=== PATIENT | male | born 1935 | race American Indian/Alaskan Native ===

== ENCOUNTER 2017-07-18 00:38 | Emergency (ER) | payer MEDICARE ==
[2017-07-18 00:40] VITALS: BMI 25.8
[2017-07-18 00:48] VITALS: BP 179/85; PULSE 63; RESP 18; TEMP 98.1; O2SAT 97
--- NOTE | 2017-07-18 02:29 | ED PDOC ---
Arrival/HPI - General Historian: Patient - History of Present Illness Time/Duration: 1 hour Symptom Onset: Sudden Symptom Course: Unchanged, Intermittent Quality: Fullness Severity Level: 5 Activities at Onset: Rest Context: Home <ZEFERINO NOLAN - Last Filed: 07/18/17 03:58> <Alex Landon - Last Filed: 07/18/17 06:28> - General Chief Complaint: Male Genitourinary Time Seen by Provider: 07/18/17 01:49 - History of Present Illness Narrative History of Present Illness (Text): 07/18/17 02:19 81yo AAM PMH prostate CA (2008) s/p radiation, hypertension, hypercholesterolemia, and b/l hip surgery who presents with scrotal bleeding that started an hour prior to presentation to emergency department. per daughter , pt was washing up in the rest room and noticed blood going down his leg and was worried it was from the penis. examined him and notes that it was scrotal. pt also complains of suprapubic pain 5/10 non-radiating and describes it as fullness, stating that when he urinates, he doesn't fully void. pt states that he went to Urologist yesterday and was evaluated, but told there's no problems PMD: Carlos Uro: Anton 07/18/17 02:33 (ZEFERINO NOLAN) Past Medical History - Provider Review Nursing Documentation Reviewed: Yes - Past History Past History: Non-Contributing - Infectious Disease Hx of Infectious Diseases: None - Tetanus Immunization Tetanus Immunization: Unknown - Past Medical History Past Medical History: Non-Contributing - Cardiac Hx Cardiac Disorders: Yes Hx Hyperlipemia: Yes Hx Hypertension: Yes - Pulmonary Hx Respiratory Disorders: No - Neurological Hx Neurological Disorder: No - HEENT Hx HEENT Disorder: No - Renal Hx Renal Disorder: Yes Hx Kidney Stones: Yes (LASER TREATMENT) - Endocrine/Metabolic Hx Endocrine Disorders: No - Hematological/Oncological Hx Blood Disorders: Yes Hx Cancer: Yes (CANCER OF THE PROSTATE-s/p radiation and SEED IMPLANTS DONE) - Integumentary Hx Dermatological Disorder: No - Musculoskeletal/Rheumatological Hx Musculoskeletal Disorders: Yes Hx Arthritis: Yes (KNEES BILAT) Hx Back Pain: Yes Hx Degenerative Joint Disease: Yes (HIPS BILAT-WITH HIP REPLACEMENTS BILAT.) Hx Falls: Yes (X1) Hx Herniated Disk: Yes (LOWER BACK-WITH SURGERY) - Gastrointestinal Hx Gastrointestinal Disorders: Yes (GENERALIZED ABD. PAIN AND ON AND OFF DIARRHEA) - Genitourinary/Gynecological Hx Genitourinary Disorders: Yes Hx Prostate Cancer: Yes (2008-SEEDS IMPLANT [place].) - Psychiatric Hx Psychophysiologic Disorder: No Hx Substance Use: No - Surgical History Hx Joint Replacement: Yes (BILATERAL HIP REPLACEMENTS) Hx Orthopedic Surgery: Yes (LOWER BACK SURGERY) - Anesthesia Hx Anesthesia: Yes Hx Anesthesia Reactions: No Hx Malignant Hyperthermia: No - Suicidal Assessment Feels Threatened In Home Enviroment: No <ZEFERINO NOLAN - Last Filed: 07/18/17 03:58> Family/Social History - Physician Review Nursing Documentation Reviewed: Yes Family/Social History: No Known Family HX Smoking Status: Never Smoked Hx Alcohol Use: No Hx Substance Use: No Hx Substance Use Treatment: No <ZEFERINO NOLAN - Last Filed: 07/18/17 03:58> Allergies/Home Meds <ZEFERINO NOLAN - Last Filed: 07/18/17 03:58> <Alex Landon - Last Filed: 07/18/17 06:28> Allergies/Adverse Reactions: Allergies No Known Allergies Allergy (Verified 01/21/16 13:13) Home Medications: Home Meds Medication Instructions Recorded Confirmed Tamsulosin [Flomax] 0.4 mg PO DAILY 10/15/13 07/18/17 Atorvastatin Calcium [Lipitor] 40 mg PO HS 06/28/15 07/18/17 Amlodipine Besylate [Norvasc] 5 mg PO DAILY 03/13/16 07/18/17 Carvedilol [Coreg] 3.125 mg PO BID 03/13/16 07/18/17 Review of Systems - Physician Review All systems were reviewed & negative as marked: Yes - Review of Systems Constitutional: Normal. absent: Weight Change, Fevers Respiratory: Normal Cardiovascular: Normal Gastrointestinal: Abdominal Pain (suprapubic, 5/10), Diarrhea. absent: Nausea, Vomiting Genitourinary Male: Urinary Output Changes (a/w prostate enlargement). absent: Dysuria, Hematuria <ZEFERINO NOLAN - Last Filed: 07/18/17 03:58> Physical Exam Vital Signs Reviewed: Yes Appearance: Positive for: Well-Appearing Pain Distress: None Mental Status: Positive for: Alert and Oriented X 3 - Systems Exam Head: Present: Atraumatic Pupils: Present: PERRL Extroacular Muscles: Present: EOMI Conjunctiva: Present: Normal Neck: Present: Normal Range of Motion Respiratory/Chest: Present: Clear to Auscultation, Good Air Exchange Cardiovascular: Present: Regular Rate and Rhythm, Normal S1, S2 Abdomen: Present: Tenderness (suprapubic), Normal Bowel Sounds. No: Distention , Peritoneal Signs, Guarding Rectal: No: Gross Blood Genitourinary Male: Present: Normal External Genitalia, Lesions (superficial scrotal abrasion, no active bleeding). No: Penile Discharge, Testicle Tenderness, Erythema, Testicle Swelling Upper Extremity: Present: Normal Inspection Lower Extremity: Present: Normal Inspection. No: Edema Neurological: Present: Speech Normal Skin: Present: Warm, Dry, Abrasion (L scrotal abrasion, no active bleeding) Psychiatric: Present: Alert, Oriented x 3 <ZEFERINO NOLAN - Last Filed: 07/18/17 03:58> Temperature: Afebrile Blood Pressure: Hypertensive Pulse: Regular Respiratory Rate: Normal <Alex Landon - Last Filed: 07/18/17 06:28> Vital Signs Temp Pulse Resp BP Pulse Ox 07/18/17 00:48 98.1 F 63 18 179/85 H 97 Medical Decision Making Reassessment Condition: Re-examined, Improved - Lab Interpretations I have reviewed the lab results: Yes Interpretation: All labs normal <ZEFERINO NOLAN - Last Filed: 07/18/17 03:58> <Alex Landon - Last Filed: 07/18/17 06:28> ED Course and Treatment: 07/18/17 02:38 Impression: 81yo M presenting with superficial scrotal abrasion and suprapubic pain Plan: - Reassess and disposition - flomax - gutierrez cath - motrin for pain Progress Notes: 07/18/17 03:17 Reassessment: gutierrez in place. pt put out 200cc light-colored yellow urine, no blood. pt states abdominal pain improved 07/18/17 03:58 discussed with pt the risk of urinary retention and possibility of sepsis due to it. pt understands and daughter/ are bedside and part of conversation. It was suggested that pt keep gutierrez in and follow up with his urologist and PMD , however, after discussion they state that they would like to remove the gutierrez catheter. pt instructed to follow up PMD and urologist. (ZEFERINO NOLAN) 07/18/17 02:46 Patient Seen With Resident: In agreement with resident note which contains more details about the patient. Patient was seen and evaluated with resident. Came up with plan and treatment together. 81 year old male presents complaining of scrotal bleeding that began a hour prior to arrival. (Alex Landon) - Lab Interpretations Lab Results: Lab Results 07/18/17 02:50: Urine Color Light yellow, Urine Appearance Clear, Urine pH 6.0, Ur Specific [place] 1.010, Urine Protein Negative, Urine Glucose (UA) Negative, Urine Ketones Negative, Urine Blood Trace-intact H, Urine Nitrate Negative, Urine Bilirubin Negative, Urine Urobilinogen 0.2, Ur Leukocyte Esterase Negative , Urine RBC 0 - 2, Urine WBC Negative, Ur Epithelial Cells 0 - 2, Urine Bacteria Mod - Medication Orders Current Medication Orders: Discontinued Medications Ibuprofen (Motrin Tab) 400 mg PO STAT STA Stop: 07/18/17 02:19 Last Admin: 07/18/17 02:51 Dose: 400 mg Tamsulosin HCl (Flomax) 0.4 mg PO STAT STA Stop: 07/18/17 02:18 Last Admin: 07/18/17 02:51 Dose: 0.4 mg <ZEFERINO NOLAN - Last Filed: 07/18/17 03:58> - PA / SENIOR PRINCIPAL / Resident Statement / has reviewed & agrees with the documentation as recorded. MD/ has examined the patient and agrees with the treatment plan. - Scribe Statement The provider has reviewed the documentation as recorded by the Scribe <Alex Landon - Last Filed: 07/18/17 06:28> - Scribe Statement Emily Andrade Provider Scribe Attestation: All medical record entries made by the Scribe were at my direction and personally dictated by me. I have reviewed the chart and agree that the record accurately reflects my personal performance of the history, physical exam, medical decision making, and the department course for this patient. I have also personally directed, reviewed, and agree with the discharge instructions and disposition. (Alex Landon) Disposition/Present on Arrival - Present on Arrival Any Indicators Present on Arrival: No History of DVT/PE: No History of Uncontrolled Diabetes: No Urinary Catheter: No History of Decub. Ulcer: No History Surgical Site Infection Following: None - Disposition Have Diagnosis and Disposition been Completed?: Yes Disposition Time: 04:03 Patient Plan: Discharge <ZEFERINO NOLAN - Last Filed: 07/18/17 03:58> <Alex Landon - Last Filed: 07/18/17 06:28> - Disposition Diagnosis: Scrotal bleeding, Abrasion of scrotum, Urinary retention Disposition: HOME/ ROUTINE Condition: GOOD Discharge Instructions (ExitCare): Urinary Retention in Men (ED) Additional Instructions: - please follow up with Dr. Gonzalez and Dr. Beasley - your urinalysis was normal - 200cc of urine were expressed when you received a gutierrez catheter in emergency department, which is suggestive of urinary obstruction - consider moisturizer applied to the scrotal in case of dryness - if you experience further bleeding, scrotal pain or trouble urinating/ worsening of abdominal pain, please return to ER for workup Referrals: Liban Gonzalez MD [Staff Provider] - Follow up with primary Gaurav Mendez MD [Medical Doctor] - Follow up with primary Forms: [employer] ([place])
[2017-07-18 02:55] LABS: URINE BILIRUBIN NEGATIVE (NEGATIVE); URINE BLOOD TRACE-INTACT (NEGATIVE); URINE GLUCOSE (UA) NEGATIVE (NEGATIVE); URINE KETONE NEGATIVE (NEGATIVE); URINE LEUKOCYTE ESTERASE NEGATIVE Leu/uL (NEGATIVE); URINE PROTEIN NEGATIVE mg/dL (<30 mg/dL); URINE UROBILINOGEN 0.2 E.U./dL (<1 E.U./dL)
[2017-07-18 03:02] LABS: URINE APPEARANCE CLEAR (CLEAR); URINE COLOR LIGHT YELLOW (YELLOW)
[2017-07-18 03:28] LABS: URINE BACTERIA MOD (NEG); URINE EPITHELIAL CELLS 0 - 2 /hpf (0-5); URINE RBC 0 - 2 /hpf (0-2); URINE WBC NEGATIVE /hpf (0-6)
== END 2017-07-18 04:20 | disposition home or self-care (01) ==
LOC: ED 00:38
DX: S30.813A Abrasion of scrotum and testes, initial encounter (principal); X58.XXXA Exposure to other specified factors, initial encounter; N50.1 Vascular disorders of male genital organs; R33.9 Retention of urine, unspecified; R10.9 Unspecified abdominal pain; E78.00 Pure hypercholesterolemia, unspecified

== ENCOUNTER 2018-08-26 14:09 | Emergency (ER) | payer MEDICARE ==
[2018-08-26 14:10] VITALS: BMI 25.8
[2018-08-26 14:27] VITALS: TEMP 97.8
--- NOTE | 2018-08-26 14:45 | ED PDOC ---
Arrival/HPI - General Chief Complaint: Headache Time Seen by Provider: 08/26/18 14:13 Historian: Patient - History of Present Illness Narrative History of Present Illness (Text): 08/26/18 14:44 82 year old male, whose past medical history includes prostate CA (2008) s/p radiation, hypertension, hypercholesterolemia, and b/l hip surgery (2012), presents to the emergency department complaining of left sided headache, for the past 3 days. Patient states that the pain is located mostly on the top left side of his head and it was originally a 7/10, but after he took an aspirin his pain improved to a 5/10. Patient also has secondary complaint of chronic left sided leg pain, since his hip surgery in 2012. Patient denies nausea, vomiting, vision changes, weakness, numbness, fevers, chills, chest pain, shortness of breath, abdominal pain, back pain, neck pain, or any other complaint. Time/Duration: < week Symptom Course: Unchanged Activities at Onset: Light Context: Home Past Medical History - Provider Review Nursing Documentation Reviewed: Yes - Past History Past History: Non-Contributing - Infectious Disease Hx of Infectious Diseases: None - Tetanus Immunization Tetanus Immunization: Unknown - Past Medical History Past Medical History: Non-Contributing - Cardiac Hx Cardiac Disorders: Yes Hx Hypertension: Yes - Pulmonary Hx Respiratory Disorders: No - Neurological Hx Neurological Disorder: Yes Hx Dizziness: Yes Hx Vertigo: Yes - HEENT Hx HEENT Disorder: No - Renal Hx Renal Disorder: Yes Hx Kidney Stones: Yes - Endocrine/Metabolic Hx Endocrine Disorders: No Other/Comment: HYPOVITAMINOSIS D - Hematological/Oncological Hx Blood Disorders: Yes Hx Blood Transfusions: No Hx Cancer: Yes - Integumentary Hx Dermatological Disorder: Yes - Musculoskeletal/Rheumatological Hx Musculoskeletal Disorders: Yes Hx Arthritis: Yes Hx Back Pain: Yes Hx Degenerative Joint Disease: Yes Hx Falls: Yes Hx Herniated Disk: Yes Hx Osteoarthritis: Yes - Gastrointestinal Hx Gastrointestinal Disorders: Yes Hx Gastritis: Yes Hx Gastroesophageal Reflux: Yes - Genitourinary/Gynecological Hx Genitourinary Disorders: Yes Hx Prostate Cancer: Yes - Psychiatric Hx Psychophysiologic Disorder: No Hx Substance Use: No - Surgical History Hx Joint Replacement: Yes Hx Orthopedic Surgery: Yes - Anesthesia Hx Anesthesia: Yes Hx Anesthesia Reactions: No Hx Malignant Hyperthermia: No - Suicidal Assessment Feels Threatened In Home Enviroment: No Family/Social History - Physician Review Nursing Documentation Reviewed: Yes Family/Social History: No Known Family HX Smoking Status: Never Smoked Hx Alcohol Use: No Hx Substance Use: No Hx Substance Use Treatment: No Allergies/Home Meds Allergies/Adverse Reactions: Allergies No Known Allergies Allergy (Verified 08/26/18 14:19) Home Medications: Home Meds Medication Instructions Recorded Confirmed RX: Tamsulosin [Flomax] 0.4 mg PO DAILY 10/15/13 08/26/18 Atorvastatin Calcium [Lipitor] 40 mg PO HS 06/28/15 08/26/18 Amlodipine Besylate [Norvasc] 5 mg PO DAILY 03/13/16 08/26/18 Carvedilol [Coreg] 3.125 mg PO BID 03/13/16 08/26/18 Aspirin [Ecotrin] 81 mg PO DAILY 05/18/18 08/26/18 Finasteride [Proscar] 5 mg PO DAILY 05/18/18 08/26/18 Meloxicam [Mobic] 15 mg PO DAILY 05/18/18 08/26/18 RX: Meclizine HCl 12.5 mg PO ONCE PRN 05/18/18 08/26/18 RX: Gabapentin [Neurontin] 300 mg PO TID 08/26/18 08/26/18 Review of Systems - Physician Review All systems were reviewed & negative as marked: Yes - Review of Systems Constitutional: absent: Fevers Eyes: absent: Vision Changes Respiratory: absent: SOB, Cough Cardiovascular: absent: Chest Pain Gastrointestinal: absent: Abdominal Pain, Diarrhea, Nausea, Vomiting Musculoskeletal: Other (left leg pain ). absent: Back Pain, Neck Pain Neurological: Headache (left sided). absent: Dizziness Physical Exam - Physical Exam Narrative Physical Exam (Text): 08/26/18 14:44 Gen: VS reviewed, alert, well developed, well nourished, nontoxic, mild distress. ENT: normal pharynx. Eye: EOMI, PERRL. Neck: no JVD, supple, no adenopathy. CV: regular rate, regular rhythm, no rubs, no murmur, no gallops, S1, S2, pulses equal and strong. Pulm: no distress, clear to auscultation, no wheeze, no rhonchi, breath sounds equal, no rales. Abd: soft, nontender, no guarding, no rebound, no rigidity, normal bowel sounds. Ext: no edema. Skin: good color, no rash, no cyanosis. Psych: responds appropriately to questions, normal affect. Neuro: oriented x 3, CN2-12 intact grossly, motor intact, sensation intact. Mild left sided scalp tenderness. Vital Signs Reviewed: Yes Vital Signs Temp Pulse Resp BP Pulse Ox 08/26/18 14:22 97.8 F 61 16 143/79 96 Temperature: Afebrile Blood Pressure: Normal Pulse: Regular Respiratory Rate: Normal Appearance: Positive for: Well-Appearing, Non-Toxic, Comfortable Pain Distress: None Mental Status: Positive for: Alert and Oriented X 3 Medical Decision Making ED Course and Treatment: 08/26/18 14:44 Impression: 82 year old male who presents to the emergency department complaining of left sided headache. Plan: -- Head CT w/o Contrast -- Labs -- Reassess and disposition Prior Visits: Notes and results from previous visits were reviewed. Progress Notes: 08/26/18 16:36 patient seen for left sided headache, throbbing in nature, no associated photophobia,no thunderclap headache, no eye complaint, no ear complaint, no meningismus, no acute neuro deficits such as numbness or weakness or overt cranial nerve deficit. CT was done to rule out overt intracranial lesions including ICH since the patient takes aspirin as analgesics. Patient was instructed to continue his workup with his pcp for the low back painwith left sided radicular symptoms. Patient also informed to follow up with neurologist for persistent headaches. 08/26/18 19:35 - Lab Interpretations I have reviewed the lab results: Yes - RAD Interpretation Narrative RAD Interpretations (Text): 08/26/18 15:[address] reviewed, shows: FINDINGS: HEMORRHAGE:No intracranial hemorrhage. BRAIN:No mass effect or edema. Chronic microvascular changes are seen in the periventricular white matter VENTRICLES:Unremarkable. No hydrocephalus. CALVARIUM:Unremarkable. PARANASAL SINUSES:Unremarkable as visualized. No significant inflammatory changes. MASTOID AIR CELLS:Unremarkable as visualized. No inflammatory changes. OTHER FINDINGS:None. IMPRESSION: No acute intracranial abnormalities [employer]: Radiologist - Scribe Statement The provider has reviewed the documentation as recorded by the Steff Elizabeth Provider Scribe Attestation: All medical record entries made by the Brittneyibjeremy were at my direction and personally dictated by me. I have reviewed the chart and agree that the record accurately reflects my personal performance of the history, physical exam, m edical decision making, and the department course for this patient. I have also personally directed, reviewed, and agree with the discharge instructions and disposition. Disposition/Present on Arrival - Present on Arrival Any Indicators Present on Arrival: No History of DVT/PE: No History of Uncontrolled Diabetes: No Urinary Catheter: No History of Decub. Ulcer: No History Surgical Site Infection Following: None - Disposition Have Diagnosis and Disposition been Completed?: Yes Diagnosis: Headache Disposition: HOME/ ROUTINE Disposition Time: 16:39 Patient Plan: Discharge Condition: STABLE Discharge Instructions (ExitCare): Radiculopathy, Headache, Adult (DC) Additional Instructions: Return for any new or worsening symptoms. Follow up with your primary care doctor as soon as possible. CT of the brain was negative and sedimentation rate was normal. Please discuss with your primary care doctor. SABRINA WARD, thank you for letting us take care of you today. Your provider was Dr. Pool Garcia and you were treated for headache. The emergency medical care you received today was directed at your acute symptoms. If you were prescribed any medication, please fill it and take as directed. It may take several days for your symptoms to resolve. Return to the Emergency Department if your symptoms worsen, do not improve, or if you have any other problems. Please contact your doctor or call one of the physicians/clinics you have been referred to that are listed on the Patient Visit Information form that is included in your discharge packet. Bring any paperwork you were given at discharge with you along with any medications you are taking to your follow up visit. Our treatment cannot replace ongoing medical care by a primary care provider outside of the emergency department. Thank you for allowing the [facility] team to be part of your care today. If you had an X-Ray or CT scan: A Radiologist will review the ED reading if any change in treatment is needed we will contact you. If you had a blood, urine, or wound culture: It will take several days for the results, if any change in treatment is needed we will contact you. If you had an STI test: It will take 48 hours for the results. Please call after 1 week if you have not heard back. Referrals: [facility] [Outside] - Follow up with primary Melchor Navarrete MD [Staff Provider] - Follow up with primary Forms: [employer] ([place] Citizen)
[2018-08-26 15:24] LABS: BASO # 0.03 K/mm3 (0.0-2.0); BASO % 0.6 % (0.0-3.0); EOS # 0.3 (0.0-0.7); EOS % 6.2 % (1.5-5.0); GRAN # 2.48 (1.4-6.5); GRAN % 52.8 % (50.0-68.0); HEMOGLOBIN 13.2 g/dL (14.0-18.0); LYMPH # 1.4 (1.2-3.4); LYMPH % 29.8 % (22.0-35.0); MEAN CELL VOLUME 95.7 fl (80.0-105.0); MEAN CORPUSCULAR HEMOGLOBIN 31.2 pg (25.0-35.0); MEAN CORPUSCULAR HGB CONC 32.6 g/dl (31.0-37.0); MEAN PLATELET VOLUME 11.9 fl (7.0-11.0); MONO # 0.5 (0.1-0.6); MONO % 10.6 % (1.0-6.0); RBC 4.23 10^6/uL (3.5-6.1); RED CELL DISTRIBUTION WIDTH 12.7 % (11.5-14.5); WHITE BLOOD COUNT 4.7 10^3/uL (4.5-11.0)
--- NOTE | 2018-08-26 15:24 | CT ---
Date of service: 08/26/2018 PROCEDURE: CT HEAD WITHOUT CONTRAST. HISTORY: left sided headache COMPARISON: None available. TECHNIQUE: Axial computed tomography images were obtained through the head/brain without intravenous contrast. Radiation dose: Total exam DLP = 914.8 mGy-cm. This CT exam was performed using one or more of the following dose reduction techniques: Automated exposure control, adjustment of the mA and/or kV according to patient size, and/or use of iterative reconstruction technique. FINDINGS: HEMORRHAGE: No intracranial hemorrhage. BRAIN: No mass effect or edema. Chronic microvascular changes are seen in the periventricular white matter VENTRICLES: Unremarkable. No hydrocephalus. CALVARIUM: Unremarkable. PARANASAL SINUSES: Unremarkable as visualized. No significant inflammatory changes. MASTOID AIR CELLS: Unremarkable as visualized. No inflammatory changes. OTHER FINDINGS: None. IMPRESSION: No acute intracranial abnormalities
[2018-08-26 15:30] LABS: ALB/GLOB RATIO 1.3 (1.1-1.8); ALBUMIN 3.9 g/dL (3.0-4.8); ALT/SGPT 22 U/L (7-56); AST/SGOT 20 U/L (17-59); BLOOD UREA NITROGEN 12 mg/dL (7-21); CALCIUM 10.1 mg/dL (8.4-10.5); GFR NON-AFRICAN AMERICAN 58
[2018-08-26 16:50] VITALS: BP 127/79; PULSE 78; RESP 18; O2SAT 98
== END 2018-08-26 16:50 | disposition home or self-care (01) ==
LOC: ED 14:09
DX: R51 Headache (principal); I10 Essential (primary) hypertension; E78.00 Pure hypercholesterolemia, unspecified

== ENCOUNTER 2018-11-19 12:26 | Outpatient (CLI) | payer MEDICARE | END 2018-11-19 12:27 | disposition home or self-care (01) | LOC: RAD 12:26 ==

== ENCOUNTER 2019-01-13 09:54 | Outpatient (CLI) | payer MEDICARE | END 2019-01-13 09:55 | disposition home or self-care (01) | LOC: RAD 09:54 ==

== ENCOUNTER 2019-02-15 11:40 | Observation (INO) | payer MEDICARE, OTHER ==
[2019-02-15 11:48] VITALS: BMI 27.2
--- NOTE | 2019-02-15 12:12 | ED PDOC ---
Arrival/HPI - History of Present Illness Narrative History of Present Illness (Text): 02/15/19 12:21 Patient is a 83 year old male with past medical history of hypertension, hyperlipidemia, BPH presenting with chief complaint of left sided chest pain which has been ongoing for the past hour. Pain is sharp and stabbing with radiation to left neck and shoulder. Denies any associated dyspnea or diaphoresis. Denies fevers, chills, headache, dizziness, diarrhea. Time/Duration: 1 hour Symptom Onset: Sudden Symptom Course: Unchanged Quality: Stabbing <Yazan Nunez - Last Filed: 02/15/19 16:34> - General Historian: Patient <Mendez Salcedo - Last Filed: 02/15/19 20:15> - General Chief Complaint: Chest Pain Time Seen by Provider: 02/15/19 11:46 Past Medical History - Provider Review Nursing Documentation Reviewed: Yes - Past History Past History: Non-Contributing - Infectious Disease Hx of Infectious Diseases: None - Tetanus Immunization Tetanus Immunization: Unknown - Past Medical History Past Medical History: Non-Contributing - Cardiac Hx Cardiac Disorders: Yes Hx Hypertension: Yes - Pulmonary Hx Respiratory Disorders: No - Neurological Hx Neurological Disorder: Yes Hx Dizziness: Yes Hx Vertigo: Yes - HEENT Hx HEENT Disorder: No - Renal Hx Renal Disorder: Yes Hx Kidney Stones: Yes - Endocrine/Metabolic Hx Endocrine Disorders: No Other/Comment: HYPOVITAMINOSIS D - Hematological/Oncological Hx Blood Disorders: Yes Hx Blood Transfusions: No Hx Cancer: Yes (Prostate) - Integumentary Hx Dermatological Disorder: Yes - Musculoskeletal/Rheumatological Hx Musculoskeletal Disorders: Yes Hx Arthritis: Yes Hx Back Pain: Yes Hx Degenerative Joint Disease: Yes Hx Falls: Yes Hx Herniated Disk: Yes Hx Osteoarthritis: Yes - Gastrointestinal Hx Gastrointestinal Disorders: Yes Hx Gastritis: Yes Hx Gastroesophageal Reflux: Yes - Genitourinary/Gynecological Hx Genitourinary Disorders: Yes Hx Prostate Cancer: Yes - Psychiatric Hx Psychophysiologic Disorder: No Hx Substance Use: No - Surgical History Hx Joint Replacement: Yes Hx Orthopedic Surgery: Yes - Anesthesia Hx Anesthesia: Yes Hx Anesthesia Reactions: No Hx Malignant Hyperthermia: No - Suicidal Assessment Feels Threatened In Home Enviroment: No <Yazan Nunez - Last Filed: 02/15/19 16:34> Family/Social History - Physician Review Nursing Documentation Reviewed: Yes Family/Social History: No Known Family HX Smoking Status: Never Smoked Hx Alcohol Use: No Hx Substance Use: No Hx Substance Use Treatment: No <Yazan Nunez - Last Filed: 02/15/19 16:34> Allergies/Home Meds <Yazan Nunez - Last Filed: 02/15/19 16:34> <Mendez Salcedo - Last Filed: 02/15/19 20:15> Allergies/Adverse Reactions: Allergies No Known Allergies Allergy (Verified 08/26/18 14:19) Home Medications: Home Meds Medication Instructions Recorded Confirmed Tamsulosin [Flomax] 0.4 mg PO DAILY 10/15/13 02/15/19 Atorvastatin Calcium [Lipitor] 40 mg PO HS 06/28/15 02/15/19 Amlodipine Besylate [Norvasc] 5 mg PO DAILY 03/13/16 02/15/19 Carvedilol [Coreg] 3.125 mg PO BID 03/13/16 02/15/19 Aspirin [Ecotrin] 81 mg PO DAILY 05/18/18 02/15/19 Finasteride [Proscar] 5 mg PO DAILY 05/18/18 02/15/19 Meclizine HCl 12.5 mg PO ONCE PRN 05/18/18 02/15/19 Meloxicam [Mobic] 15 mg PO DAILY 05/18/18 02/15/19 Gabapentin [Neurontin] 300 mg PO TID 08/26/18 02/15/19 Calcium Acetate [Phoslo] 667 mg PO 02/15/19 Cholestyramine [Questran] 4 gm PO 02/15/19 Omeprazole 40 mg PO 02/15/19 Ranitidine HCl [Sunmark Acid 150 mg PO 02/15/19 Manager Cash] Review of Systems - Physician Review All systems were reviewed & negative as marked: Yes - Review of Systems Respiratory: Normal Cardiovascular: Chest Pain Gastrointestinal: Normal Genitourinary Male: Other (Hx BPH ) <Yazan Nunez - Last Filed: 02/15/19 16:34> Physical Exam Vital Signs Reviewed: Yes Vital Signs Temp Pulse Resp BP Pulse Ox 02/15/19 11:52 97.4 F L 69 16 147/80 100 Temperature: Afebrile Blood Pressure: Normal Pulse: Regular Respiratory Rate: Normal Appearance: Positive for: Well-Appearing, Comfortable Pain Distress: None Mental Status: Positive for: Alert and Oriented X 3 - Systems Exam Head: Present: Atraumatic, Normocephalic Pupils: Present: PERRL Extroacular Muscles: Present: EOMI Conjunctiva: Present: Normal Mouth: Present: Moist Mucous Membranes Neck: No: Bruit Respiratory/Chest: Present: Clear to Auscultation, Good Air Exchange. No: Respiratory Distress, Accessory Muscle Use, Tender to Palpation Cardiovascular: Present: Regular Rate and Rhythm, Normal S1, S2. No: Murmurs, Tachycardic Abdomen: Present: Normal Bowel Sounds. No: Tenderness, Distention Lower Extremity: Present: Normal Inspection Neurological: Present: GCS=15, CN II-XII Intact, Speech Normal Skin: Present: Warm, Dry, Normal Color Psychiatric: Present: Alert, Oriented x 3 <Yazan Nunez - Last Filed: 02/15/19 16:34> Vital Signs Temp Pulse Resp BP Pulse Ox 02/15/19 15:00 59 L 16 159/85 H 98 02/15/19 13:40 55 L 16 142/88 98 02/15/19 11:52 97.4 F L 69 16 147/80 100 <Mendez Salcedo - Last Filed: 02/15/19 20:15> Medical Decision Making ED Course and Treatment: 02/15/19 12:26 Impression: 83 year old male with chest pain Plan: - CBC, CMP - EKG, cardiac ISO - Chest X-ray - Lipase - Aspirin - Reassess and disposition Prior Visits: Notes and results from previous visits were reviewed. Progress Notes: 02/15/19 13:55 Labs and imaging reviewed. Patient hemodynamically stable, reports improvement in symptoms. Case discussed with Dr. Meier who accepts patient for admission. Patient in agreement with plan of mangement. - Lab Interpretations I have reviewed the lab results: Yes - RAD Interpretation Radiology Orders: 02/15/19 12:10 CHEST PORTABLE [RAD] Stat - EKG Interpretation EKG Interpretation (Text): 02/15/19 16:35 NSR @ 71 bpm Interpreted by ED Physician: Yes Type: 12 lead EKG - Medication Orders Current Medication Orders: Discontinued Medications Aspirin (Aspirin) 325 mg PO STAT STA Stop: 02/15/19 12:11 <Yazan Nunez - Last Filed: 02/15/19 16:34> ED Course and Treatment: In agreement with resident note, which includes further HPI details. Patient was seen and evaluated with resident, came up with plan and treatment together. 83 year old male presents complaining of left sided sharp chest pain for the past 1 hour. Plan: -- EKG -- Labs -- Chest X-ray -- Aspirin -- Reassess and dispo Chest X-ray Dictator : Clayton Hernandez MD Report Date : 02/15/2019 12:40:10 IMPRESSION: No active disease. 02/15/19 20:14 pt seen with resdient pt iwth multiple cardiac risk factor with pain to left chest [address] meier. pain free in er. - Lab Interpretations Lab Results: PT 11.9 SECONDS (9.4-12.5) 02/15/19 12:19 INR 1.05 02/15/19 12:19 APTT 36.8 Seconds (26.9-38.3) 02/15/19 12:19 Troponin I < 0.01 ng/mL 02/15/19 12:50 Total Bilirubin 2.9 mg/dL (0.2-1.3) H 02/15/19 12:50 AST 22 U/L (17-59) 02/15/19 12:50 ALT 15 U/L (7-56) 02/15/19 12:50 Alkaline Phosphatase 70 U/L (38-126) 02/15/19 12:50 Total Protein 6.7 g/dL (5.8-8.3) 02/15/19 12:50 Albumin 3.8 g/dL (3.0-4.8) 02/15/19 12:50 Globulin 2.9 gm/dL 02/15/19 12:50 Albumin/Globulin Ratio 1.3 (1.1-1.8) 02/15/19 12:50 Lipase 34 U/L (23-300) 02/15/19 12:50 - RAD Interpretation Radiology Orders: 02/15/19 12:10 CHEST PORTABLE [RAD] Stat Clothing Sales Assistant: Radiologist - Medication Orders Current Medication Orders: Amlodipine Besylate (Norvasc) 5 mg PO DAILY [facility] Aspirin (Ecotrin) 81 mg PO DAILY [facility] Atorvastatin Calcium (Lipitor) 40 mg PO HS [facility] Carvedilol (Coreg) 3.125 mg PO DAILY [facility] Finasteride (Proscar) 5 mg PO DAILY [facility] Gabapentin (Neurontin) 300 mg PO TID [facility]; Protocol Tamsulosin HCl (Flomax) 0.4 mg PO DAILY [facility] Discontinued Medications Aspirin (Aspirin) 325 mg PO STAT STA Stop: 02/15/19 12:11 Last Admin: 02/15/19 12:28 Dose: Not Given Non-Admin Reason: pt took aspirin at home <Mendez Salcedo - Last Filed: 02/15/19 20:15> - Scribe Statement The provider has reviewed the documentation as recorded by the Steff Andrade Provider Scribe Attestation: All medical record entries made by the Steff were at my direction and personally dictated by me. I have reviewed the chart and agree that the record accurately reflects my personal performance of the history, physical exam, medical decision making, and the department course for this patient. I have also personally directed, reviewed, and agree with the discharge instructions and disposition. <Mendez Salcedo - Last Filed: 02/15/19 20:15> Disposition/Present on Arrival - Present on Arrival Any Indicators Present on Arrival: No History of DVT/PE: No History of Uncontrolled Diabetes: No Urinary Catheter: No History of Decub. Ulcer: No History Surgical Site Infection Following: None - Disposition Have Diagnosis and Disposition been Completed?: Yes Disposition Time: 13:55 <Yazan Nunez - Last Filed: 02/15/19 16:34> <Mendez Salcedo - Last Filed: 02/15/19 20:15> - Disposition Diagnosis: Chest pain Disposition: HOSPITALIZED Patient Problems: Current Active Problems Problem Status Onset Chest pain Acute Condition: STABLE
[2019-02-15 12:39] LABS: BASO # 0.03 K/mm3 (0.0-2.0); BASO % 0.6 % (0.0-3.0); EOS # 0.2 (0.0-0.7); HEMOGLOBIN 14.1 g/dL (14.0-18.0); LYMPH # 1.2 (1.2-3.4); LYMPH % 22.7 % (22.0-35.0); MEAN CELL VOLUME 94.8 fl (80.0-105.0); MEAN CORPUSCULAR HEMOGLOBIN 30.7 pg (25.0-35.0); MEAN CORPUSCULAR HGB CONC 32.4 g/dl (31.0-37.0); MONO # 0.9 (0.1-0.6); MONO % 17.1 % (1.0-6.0); RBC 4.59 10^6/uL (3.5-6.1); RED CELL DISTRIBUTION WIDTH 12.6 % (11.5-14.5); WHITE BLOOD COUNT 5.2 10^3/uL (4.5-11.0)
--- NOTE | 2019-02-15 12:44 | RAD ---
Date of service: 02/15/2019 HISTORY: melissa COMPARISON: 11/19/2018 TECHNIQUE: 1 view obtained. FINDINGS: LUNGS: No active pulmonary disease. PLEURA: No significant pleural effusion identified, no pneumothorax apparent. CARDIOVASCULAR: No aortic atherosclerotic calcification present. Normal cardiac size. No pulmonary vascular congestion. OSSEOUS STRUCTURES: No significant abnormalities. VISUALIZED UPPER ABDOMEN: Normal. OTHER FINDINGS: None. IMPRESSION: No active disease.
[2019-02-15 12:47] LABS: INR 1.05; PARTIAL THROMBOPLASTIN TIME 36.8 Seconds (26.9-38.3); PROTHROMBIN TIME 11.9 SECONDS (9.4-12.5)
[2019-02-15 13:38] LABS: ALB/GLOB RATIO 1.3 (1.1-1.8); ALBUMIN 3.8 g/dL (3.0-4.8); ALT/SGPT 15 U/L (7-56); AST/SGOT 22 U/L (17-59); BLOOD UREA NITROGEN 13 mg/dL (7-21); GFR NON-AFRICAN AMERICAN > 60; LIPASE 34 U/L (23-300)
[2019-02-15 13:49] LABS: TROPONIN I < 0.01 ng/mL
--- NOTE | 2019-02-15 19:14 | CARD ---
APPROVED REPORT Date of service: 02/15/2019 EKG Measurement Heart [id number] <Conclusion> Normal sinus rhythm Left axis deviation Incomplete right bundle branch block Abnormal ECG
[2019-02-16] MEDS: Enoxaparin 40 mg Syringe SC SCH (09:58)
[2019-02-16 11:49] LABS: TROPONIN I < 0.01 ng/mL
--- NOTE | 2019-02-16 13:59 | CON ---
DATE: 02/16/2019 REASON FOR CONSULTATION AND FOLLOWUP: Cardiac evaluation, admitted with the chest pain. BRIEF CLINICAL HISTORY: This 83 year old admitted with past medical history significant for hypertension, hyperlipidemia, benign prosthetic hypertrophy, back pain, came in with complaint of chest pain left sided and going to the back. Denies any prior episode of chest pain. The patient had 2-3 years ago left upper quadrant found to be acute cholecystitis at that time. PAST MEDICAL HISTORY: Significant for hypertension, hyperlipidemia and benign prosthetic hypertrophy. PAST SURGICAL HISTORY: Significant for cholecystectomy, history of back problem, history of cholecystitis, history of cholecystectomy 06/2014, history of benign prosthetic hypertrophy and history of back pain and back surgery. PREVIOUS CARDIAC WORKUP: As follows; the patient had an echo done 06/28/2014 that shows normal chamber size ejection fraction 55%, trace mitral regurgitation, trace tricuspid regurgitation, trace NJ, trace AR, and diastolic dysfunction. CURRENT MEDICATION: The patient at home was taking Carvedilol, atorvastatin, aspirin, amlodipine, meclizine, meloxicam, Flomax, omeprazole, cholestyramine and calcium acetate. ALLERGIES: NO KNOWN DRUG ALLERGY. REVIEW OF SYSTEMS: As per HPI. SOCIAL HISTORY: Denies any smoking. Denies any history of alcohol abuse. PHYSICAL EXAMINATION: VITAL SIGNS: Height of the patient 5 feet 8 inches and weight of the patient 175 pounds. Body mass index 27.2 kg/m2. Temperature afebrile, heart rate 60 and blood pressure 117/70. HEENT: PERRLA. Extraocular muscles intact. NECK: Supple. No carotid bruits. No thyromegaly. CHEST: Clear to auscultation. HEART: S1 and S2, regular. ABDOMEN: Soft. EXTREMITIES: Clubbing and cyanosis, negative. LABORATORY DATA: Blood workup as follows; WBC 5.8, hemoglobin 14, hematocrit 43.5 and platelet count 125. Chemistry shows sodium 139, potassium 3.6, chloride 106, carbon dioxide of 27, anion gap of 11, BUN 13, creatinine 1.1 and troponin 0.01. EKG showed normal sinus rate of 77, left access deviation, incomplete right bundle. IMPRESSION: An 83-year-old male with past medical history significant hypertension, hyperlipidemia, elevated bilirubin, history of cholecystitis, history of cholecystectomy 4 years ago, back pain, prostatic hypertrophy, admitted with left sided chest pain, so far troponin remains negative. RECOMMENDATIONS: We will repeat troponin second set, lipid profile, TSH, hemoglobin A1C, and echo. Last echo in 2013 with preserved LV function, normal chamber size, trace AR, and trace Tr. If troponin remains negative, we will do a stress test tomorrow. We will get echo today and stress test tomorrow. Further recommendation depend on hospital course. We will follow with you. We will also give DVT prophylaxis Thank you Dr. Gonzalez for providing us the opportunity in taking care of the patient, Josias Riggins. Ana Luna MD
--- NOTE | 2019-02-16 18:51 | CARD ---
APPROVED REPORT Date of service: 02/16/2019 EXAM: Two-dimensional and M-mode echocardiogram with Doppler and color Doppler. INDICATION Chest Pain 2D DIMENSIONS Left Atrium (2D)4.1 (1.6-4.0cm)IVSd1.5 (0.7-1.1cm) LVDd4.0 (3.9-5.9cm)PWd1.5 (0.7-1.1cm) LVDs2.7 (2.5-4.0cm)FS (%) 32.2 % LVEF (%)61.0 (>50%) M-Mode DIMENSIONS Aortic Root3.50 (2.2-3.7cm)Aortic Cusp Exc.1.50 (1.5-2.0cm) Aortic Valve AoV Peak Jxogwrxk437.0cm/Chela Peak GR.8mmHg Mitral Valve MV E Aeefcbzb46.9cm/sMV A Snuobpig64.3cm/sE/A ratio0.9 TDI Lateral E' Peak V7.41cm/sMedial E' Peak V5.46cm/sE/Lateral E'11.6 E/Medial E'15.7 Pulmonary Valve PV Peak Vffprxdp21.7cm/sPV Peak Grad.2mmHg Tricuspid Valve TR Peak Fjaqlosr489vh/sRAP RBREUIPE63vxWgRE Peak Gr.16mmHg [id number] LEFT VENTRICLE The left ventricle is normal size. There is moderate concentric left ventricular hypertrophy. The left ventricular function is normal. The left ventricular ejection fraction is within the normal range.Ej.Fr:61%. Tissue Doppler imaging reveals mild left ventricular diastolic dysfunction. RIGHT VENTRICLE The right ventricle is normal size. The right ventricular systolic function is normal. ATRIA Left Atrium Shows minimal Dilatation. The right atrium size is normal. AORTIC VALVE Aortic Valve Leaflets thickened. Valve Opening Normal. MITRAL VALVE The mitral valve is normal in structure. Mitral regurgitation is mild. TRICUSPID VALVE The tricuspid valve is normal in structure. There is trace tricuspid regurgitation. PERICARDIAL EFFUSION There is no pericardial effusion. <Conclusion> The left ventricle is normal size. There is moderate concentric left ventricular hypertrophy. The left ventricular function is normal. The left ventricular ejection fraction is within the normal range.Ej.Fr:61%. Tissue Doppler imaging reveals mild left ventricular diastolic dysfunction. The right ventricle is normal size. The right ventricular systolic function is normal. Left Atrium Shows minimal Dilatation. The right atrium size is normal. Aortic Valve Leaflets thickened. Valve Opening Normal. The mitral valve is normal in structure. Mitral regurgitation is mild. The tricuspid valve is normal in structure. There is trace tricuspid regurgitation. There is no pericardial effusion.
--- NOTE | 2019-02-17 03:00 | HP ---
DATE OF EXAM: 02/15/2019 CHIEF COMPLAINT: Gilson Ferrara came in with left-sided chest pain. HISTORY OF PRESENT ILLNESS: This is an 83-year-old male with history of hypertension, hyperlipidemia, prostate enlargement, and prostate cancer in the past, came in while he is in GI office, he starts complaining of left-sided chest pain. According to the patient, the left-sided chest pain go to his left neck area, left shoulder area is associated with that pain. No nausea. No vomiting. No dizziness. No palpitations. The pain stayed for 5 to 10 minutes, then it go away, this has been going on for 2 to 3 days, it seems getting more frequent according to the patient. The patient has no history of coronary artery disease. He did have stress test may be 2 years ago or less. No other complaint. PAST MEDICAL HISTORY: As I mentioned, he does have hypertension, hypercholesterolemia, prostate enlargement with prostate cancer in the past , has hip replacement, has knee replacement, has chronic osteoarthritis, and also has a history of vertigo. HOME MEDICATIONS: He takes Coreg 3.125 b.i.d., Lipitor 40 at bedtime, aspirin 81, Norvasc 5, meclizine 12.5, Neurontin 300 t.i.d., Proscar 5 mg, Mobic 15 mg, Flomax 0.4, Prilosec 40 daily p.r.n., and calcium p.o. b.i.d. ALLERGIES: NO KNOWN ALLERGIES. SOCIAL HISTORY: Lives with his . No smoking. No drinking. Occasionally socially drink. REVIEW OF SYSTEMS: As in present illness; otherwise, rest is negative. PHYSICAL EXAMINATION: VITAL SIGNS: Temperature 97.7, heart rate 64, blood pressure 136/76, respirations 20, and sats 97%. HEAD AND NECK: Normal. No JVD. No thyromegaly. CHEST: Clear bilateral. CARDIAC: First sound and second sound normal. No murmur, rub, or gallop. ABDOMEN: Soft, nontender, and obese. EXTREMITIES: No edema. NEUROLOGIC: Normal. LABORATORY DATA: Include white count 5.2, hemoglobin 14.1, hematocrit 43, and platelet 125. Chemistry shows sodium 139, potassium 3.6, chloride 107, bicarb 27, BUN 13, and creatinine 1.1. AST and ALT is normal. Lactate dehydrogenase is normal. Alk phos is normal. Total bilirubin slightly elevated 2.9. Calcium and globulin is normal. Lipase is normal. Troponin was done and it was negative. The patient also had chest x ray and EKG. Chest x ray was reported no active pulmonary disease. EKG was reported, no acute ST elevation. The patient has normal sinus rhythm, left axis deviation, and incomplete right bundle-branch block. IMPRESSION AND PLAN: 1. This is an 83-year-old male history of hypertension, hypercholesterolemia, came in with intermittent chest pain for a couple of days seems to be getting worse. We will admit the patient to telemetry unit. I will get cardiac enzymes. We will get Cardiology consult. Continue aspirin, beta-blockers, and followup clinically and the patient will go for nuclear stress testing. We will give him Lovenox, aspirin, and Coreg. 2. Hypertension, hypercholesterolemia, history of prostate cancer, and prostate enlargement. Plan is to continue Proscar, Norvasc, Neurontin, Flomax, and we will follow up clinically. Liban Gonzalez MD
[2019-02-17 07:28] LABS: ALB/GLOB RATIO 1.3 (1.1-1.8); ALBUMIN 3.5 g/dL (3.0-4.8); ALT/SGPT 16 U/L (7-56); AST/SGOT 21 U/L (17-59); BLOOD UREA NITROGEN 17 mg/dL (7-21); CALCIUM 9.7 mg/dL (8.4-10.5); GFR NON-AFRICAN AMERICAN 58; HDL CHOLESTEROL 46 mg/dL (29-60)
[2019-02-17 07:38] LABS: LDL CHOLESTEROL 53 mg/dL (0-129)
[2019-02-17 07:57] VITALS: RESP 18; O2SAT 96
--- NOTE | 2019-02-17 09:04 | PN ---
DATE: 02/16/2019 SUBJECTIVE: The patient had a nuclear stress test, waiting for second part; otherwise, he is stable. No chest pain. No shortness of breath. The patient did complain of left shoulder pain but otherwise stable. PHYSICAL EXAMINATION: Today, date which is 02/16/2019, VITAL SIGNS: His temperature is 98.6, heart rate 66, blood pressure 119/70, respirations 20, saturation 100%. HEAD AND NECK: Normal. No JVD, no thyromegaly. CHEST: Clear bilateral. CARDIAC: First sound and second sound normal. No murmur, rub or gallop. ABDOMEN: Soft, nontender. EXTREMITIES: No edema. NEUROLOGICAL: Normal. LABORATORY DATA: The patient's troponin is negative. IMPRESSION AND PLAN: 1. Chest pain. Stress test result still pending but seems stable. No dyspnea. We will follow up on that. The patient is otherwise stable. 2. Hypertension, hypercholesterolemia. Continue current medication as the patient is stable, probably will be discharged if the nuclear stress test comes back negative. The patient also had an echocardiogram by Dr. Lomax and he read it as left ventricular shunt, normal size, left ventricular hypertrophy, good left ventricular function 61%. No significant other finding except left ventricular diastolic dysfunction. Liban Gonzalez MD
--- NOTE | 2019-02-17 10:14 | CP.PCM.PN ---
Subjective - Date & Time of Evaluation Date of Evaluation: 02/17/19 Time of Evaluation: 06:30 - Subjective Subjective: Awake, alert,no distress Reason for consultation and follow up: Cardiac evaluation for chest pain Seen and examined by me and Dr. Luna Objective - Vital Signs/Intake and Output Vital Signs (last 24 hours): Temp Pulse Resp BP Pulse Ox 98.8 F 48 L 18 127/71 96 02/17/19 06:00 02/17/19 06:00 02/17/19 06:00 02/17/19 06:00 02/17/19 06:00 Intake and Output: 02/17/19 02/17/19 06:59 18:59 Intake Total 1192 Balance 1192 - Medications Medications: Current Medications Amlodipine Besylate (Norvasc) 5 mg PO DAILY [facility] Last Admin: 02/16/19 09:59 Dose: 5 mg Aspirin (Ecotrin) 81 mg PO DAILY [facility] Last Admin: 02/16/19 09:59 Dose: 81 mg Atorvastatin Calcium (Lipitor) 40 mg PO HS [facility] Last Admin: 02/16/19 21:21 Dose: 40 mg Carvedilol (Coreg) 3.125 mg PO DAILY [facility] Last Admin: 02/16/19 09:59 Dose: Not Given Enoxaparin Sodium (Lovenox) 40 mg SC DAILY [facility]; Protocol Last Admin: 02/16/19 09:58 Dose: 40 mg Finasteride (Proscar) 5 mg PO DAILY [facility] Last Admin: 02/16/19 09:59 Dose: 5 mg Gabapentin (Neurontin) 300 mg PO TID [facility]; Protocol Last Admin: 02/16/19 17:49 Dose: 300 mg Potassium Chloride (Klor-Con 10) 10 meq PO BRK [facility] Tamsulosin HCl (Flomax) 0.4 mg PO DAILY [facility] Last Admin: 02/16/19 09:59 Dose: 0.4 mg - Labs Labs: 02/15/19 12:19 02/17/19 06:45 PT 11.9 SECONDS (9.4-12.5) 02/15/19 12:19 INR 1.05 02/15/19 12:19 APTT 36.8 Seconds (26.9-38.3) 02/15/19 12:19 - Constitutional Appears: Non-toxic, No Acute Distress - Head Exam Head Exam: NORMAL INSPECTION, NORMOCEPHALIC - Eye Exam Eye Exam: Normal appearance Pupil Exam: NORMAL ACCOMODATION - ENT Exam ENT Exam: Mucous Membranes Moist, Normal Exam - Respiratory Exam Respiratory Exam: Clear to Ausculation Bilateral, NORMAL BREATHING PATTERN - Cardiovascular Exam Cardiovascular Exam: Bradycardia, +S1, +S2 - GI/Abdominal Exam GI & Abdominal Exam: Soft, Normal Bowel Sounds - Extremities Exam Extremities Exam: Full ROM, Normal Capillary Refill - Neurological Exam Neurological Exam: Alert, Awake, Oriented x3 - Psychiatric Exam Psychiatric exam: Normal Affect, Normal Mood - Skin Skin Exam: Dry, Normal Color, Warm Assessment and Plan - Assessment and Plan (Free Text) Assessment: An 83 year old male who came in to the ER due to complaints of left sided chest pain which is sharp and stabbing with radiation to left neck and shoulder.History of hypertension, hyperlipidemia, BPH, cholecystectomy, back pain and back surgery. Troponin negative, EKG showed NSR. Echo done yesterday and showed moderate concentric LVH, LVEF 61%, mild LV diastolic dysfunction,mild MR,trace TR. Denies chest pain now. For stress test today. Plan: Denies chest pain For stress test today Heart rate stable Blood pressure controlled On Norvasc 5 mg daily, ASA 81 mg daily, Lipitor 40 mg daily, Lovenox 40 mg daily, Flomax 0.4 mg daily Continue current treatment Continue current medications Replenished potassium Further recommendations after stress test Will follow up Plan and treatment discussed with Dr. Luna
[2019-02-17] MEDS ORDERED: Aminophylline 25 mg/ml Inj ONE (10:27)
[2019-02-17] MEDS ORDERED: Potassium Chloride 20 mEq ER Tab PO ONE (14:00)
[2019-02-17] MEDS: Potassium Chloride 10 mEq ER Tab PO SCH (14:02)
[2019-02-17] MEDS: Enoxaparin 40 mg Syringe SC SCH (14:03)
--- NOTE | 2019-02-17 15:51 | CARD ---
APPROVED REPORT Date of service: 02/17/2019 Protocol: LEXISCAN Test Type: Lexiscan Sestamibi Stress Test Attending Physician: Dr. Ana Lomax Referring Physician: Dr. Liban Gonzalez Test Indications: Chest Pain Height:5 ft 8 in Weight:171lbs Medications: NORVASC, ASPIRIN, LIPITOR COREG, LOVENOX, PROSCAR NEURONTIN Medical History: 83 YEAR OLD MALE WITH H/O HTN, HIGH CHOLESEROL, RENAL DISEASE AND PROSTATE CANCER Target HR: 137 bpm Resting ECG: Sinus Bradycardiia 52/min. Resting Heart Rate: 51 bpm Resting Blood Pressure: 120/82mmHg Submaximum (85%): 116 bpm PROCEDURE Pharmacologic stress testing was performed using 0.4mg per 5ml of regadenoson given intravenously over 7-10 seconds. POST EXERCISE Reason for Termination: Protocol completed Target HR: No Max HR: 53 bpm 59% of Maximum Predicted HR: 137 bpm Exercise duration: 00:31 min:sec, 0 Stage Exercise capacity: 1.0METs Max Blood Pressure: 130/62mmHg Blood Pressure response to exercise: normal resting BP - appropriate response Heart Rate response to exercise: appropriate Chest Pain: No, none Angina index: 0 Arrhythmia: No, none ST Change: No, none Deviation: 0 mm INTERPRETATION Stress EKG Conclusion: IV LEXISCAN NUCLEAR STRESS TEST NEGATIVE FOR CHEST PAIN AND NEGATIVE FOR ST-T CHANGES. NUCLEAR SCAN REPORT PENDING. Signed by Ana Lomax Electronically Approved: 02/17/2019 11:39:51 EXAM: Myocardial Perfusion REST/STRESS Stress Test Type: Pharmacologic Imaging Protocol The imaging protocol used to acquire images was Rest Tc-99m/stress Tc-99m 1 day Stress Spect myocardial perfusion imaging was performed in supine position 50 minutes following the injection of 10 mCi of Tc-99 Myoview. At peak stress, the patient was injected intravenously with 30.2mCi of Tc-99 tetrofosmin after an infusion time of 0 minutes and 10 seconds. Gated Stress Spect was performed 65 minutes after intravenous Tc-99 Myoview injection. The images were gated to evaluate regional wall motion and calculate ventricular ejection fraction.Images were reconstructed using backfilter projection method in short horizontal and verticle long axis. Spect slices were generated. LV Perfusion The quality of the study is good. The left ventricle is normal in size. The right ventricle is unremarkable. The lung uptake is normal. The distribution of tracer reveals moderately and diffusely decreased perfusion in the inferior wall on the stress study. The remainder of the LV myocardium is unremarkable. The rest myocardial perfusion study shows no significant change. Wall Motion Wall motion study shows good contractility of the left ventricle. LVEF = 66%. Conclusion 1. Essentially normal SPECT myocardial perfusion study. 2. Fixed, inferior defect is most likely due to diaphrgmatic attenuation. 3. Normal gated wall motion and thicknening of the left ventricle.
--- NOTE | 2019-02-18 06:57 | CP.PCM.PN ---
Subjective - Date & Time of Evaluation Date of Evaluation: 02/18/19 Time of Evaluation: 06:25 - Subjective Subjective: Easily awaken, no distress,denies chest pain Reason for consultation and follow up: Cardiac evaluation for chest pain,History of hypertension, hyperlipidemia, normal stress test Seen and examined by me and Dr. Luna Objective - Vital Signs/Intake and Output Vital Signs (last 24 hours): Temp Pulse Resp BP Pulse Ox 98.0 F 58 L 18 123/74 96 02/18/19 06:00 02/18/19 06:00 02/18/19 06:00 02/18/19 06:00 02/17/19 06:00 Intake and Output: 02/17/19 02/18/19 18:59 06:59 Intake Total 480 480 Output Total 600 Balance -120 480 - Medications Medications: Current Medications Amlodipine Besylate (Norvasc) 5 mg PO DAILY [facility] Last Admin: 02/17/19 14:03 Dose: 5 mg Aspirin (Ecotrin) 81 mg PO DAILY [facility] Last Admin: 02/17/19 14:02 Dose: 81 mg Atorvastatin Calcium (Lipitor) 40 mg PO HS [facility] Last Admin: 02/17/19 21:50 Dose: 40 mg Carvedilol (Coreg) 3.125 mg PO DAILY [facility] Last Admin: 02/17/19 14:02 Dose: 3.125 mg Enoxaparin Sodium (Lovenox) 40 mg SC DAILY [facility]; Protocol Last Admin: 02/17/19 14:03 Dose: 40 mg Finasteride (Proscar) 5 mg PO DAILY [facility] Last Admin: 02/17/19 14:02 Dose: 5 mg Gabapentin (Neurontin) 300 mg PO TID [facility]; Protocol Last Admin: 02/17/19 18:35 Dose: 300 mg Potassium Chloride (Klor-Con 10) 10 meq PO BRK [facility] Last Admin: 02/17/19 14:02 Dose: 10 meq Tamsulosin HCl (Flomax) 0.4 mg PO DAILY [facility] Last Admin: 02/17/19 14:09 Dose: 0.4 mg - Labs Labs: 02/15/19 12:19 02/17/19 06:45 PT 11.9 SECONDS (9.4-12.5) 02/15/19 12:19 INR 1.05 02/15/19 12:19 APTT 36.8 Seconds (26.9-38.3) 02/15/19 12:19 - Constitutional Appears: Non-toxic, No Acute Distress - Head Exam Head Exam: NORMAL INSPECTION, NORMOCEPHALIC - Eye Exam Eye Exam: Normal appearance Pupil Exam: NORMAL ACCOMODATION - ENT Exam ENT Exam: Mucous Membranes Moist, Normal Exam - Respiratory Exam Respiratory Exam: Decreased Breath Sounds, Clear to Ausculation Bilateral, NORMAL BREATHING PATTERN - Cardiovascular Exam Cardiovascular Exam: Bradycardia, +S1, +S2 - GI/Abdominal Exam GI & Abdominal Exam: Soft, Normal Bowel Sounds - Extremities Exam Extremities Exam: Full ROM, Normal Capillary Refill - Neurological Exam Neurological Exam: Alert, Awake, Oriented x3 - Psychiatric Exam Psychiatric exam: Normal Affect, Normal Mood - Skin Skin Exam: Dry, Normal Color, Warm Assessment and Plan - Assessment and Plan (Free Text) Assessment: An 83 year old male who came in to the ER due to complaints of left sided chest pain which is sharp and stabbing with radiation to left neck and shoulder.History of hypertension, hyperlipidemia, BPH, cholecystectomy, back pain and back surgery. Troponin negative, EKG showed NSR. Echo done and showed moderate concentric LVH, LVEF 61%, mild LV diastolic dysfunction,mild MR,trace TR. Denies chest pain now. Stress test done yesterday and showed LVEF 66%. Normal results, no evidence of ischemia. No evidence of myocardial infarction. Discontinue telemetry. Discharge planning. May discharge from cardiac standpoint. Plan: Denies chest pain Cardiac status stable Heart rate stable Blood pressure controlled On Norvasc 5 mg daily, ASA 81 mg daily, Lipitor 40 mg daily, Lovenox 40 mg daily, Flomax 0.4 mg daily Continue current treatment Continue current medications Discontinue telemetry May discharge from cardiac standpoint Will follow up Plan and treatment discussed with Dr. Luna
[2019-02-18] MEDS ORDERED: Pantoprazole 40 mg EC Tab PO SCH (09:30)
[2019-02-18] MEDS: Enoxaparin 40 mg Syringe SC SCH (09:52)
[2019-02-18] MEDS: Potassium Chloride 10 mEq ER Tab PO SCH (09:53)
[2019-02-18] MEDS ORDERED: Cholestyramine 4 gm/Pkt UD PO SCH (10:00)
[2019-02-18 12:59] VITALS: BP 125/76; PULSE 78; TEMP 98.4
--- NOTE | 2019-02-21 11:46 | PN ---
DATE: 02/21/2019 SUBJECTIVE: The patient was admitted with left sided chest pain. The patient underwent echocardiography and a nuclear stress test. The patient denied any nausea, vomiting any dizziness. PHYSICAL EXAMINATION: On 02/17/2019; VITAL SIGNS: Temperature is 98.8, heart rate is 51, blood pressure 120/82, respiration 18 and sat 96% on room air. HEAD AND NECK: Normal. No JVD. No thyromegaly. CHEST: Clear bilaterally. CARDIAC: First sounds and second sound normal. No murmur, rub or gallop. ABDOMEN: Soft and nontender. EXTREMITIES: No edema. NEUROLOGIC: Normal. LABORATORY DATA: Sodium 139, potassium 3.5, chloride 104, bicarb 29, BUN 17 and creatinine 1.2. Liver function test is normal except total bilirubin 2.5. AST 21, ALT 16 and alk phos 67. The patient also had a total cholesterol of 113 and LDL of 53, HDL 46 and TSH 1.04. The patient also had an echocardiography which shows good LV functions, relaxation nuclear stress test was still pending at that time, later on overnight it came back as normal. IMPRESSION: 1. Chest pain. The patient seen by Assistant Teaching Professor, nuclear stress test results it was pending, but it came finally negative and will be discharged in the morning. Echocardiography is good. 2. Hypertension. 3. Chronic osteoarthritis. 4. Hypercholesteremia, also the patient had hypertension with stable prostate enlargement. PLAN: Medication will be on Questran, PhosLo, calcium, ranitidine, omeprazole, Coreg 3.125 mg, Lipitor 40 mg, Ecotrin 81 mg, Norvasc 5 mg, meclizine 12.5 mg p.r.n., Neurontin 300 mg t.i.d., Proscar 5 mg, Mobic 50 mg p.r.n., and on Flomax 0.4 mg today. We will continue these medications. The patient probably will be discharged in the morning and continue current medications. Liban Gonzalez MD
--- NOTE | 2019-02-22 01:57 | DS ---
HOSPITAL COURSE: The patient is stable. No chest pain. No short of breath. The results of the cardiac evaluations negative. The patient was seen by Cardiology, Dr. Luna and has been stable since then. The patient was initially seen by Dr. Zarco. The patient has no complaint now. He is stable. PHYSICAL EXAMINATION: VITAL SIGNS: His temperature is 98.4, heart rate is 64, blood pressure 123/67, and respirations 18. HEAD AND NECK: Normal. No JVD. No thyromegaly. CHEST: Clear bilaterally. CARDIAC: First sound and second sound normal. ABDOMEN: Soft and nontender. EXTREMITIES: No edema. NEUROLOGIC: Normal. LABORATORY DATA: Sodium 139, potassium is 3.5 which is corrected, chloride 104, bicarb 29, BUN is 17, and creatinine 1.7. His LDL was 53. His HDL 48. The patient had troponin was negative. He had an echocardiography which shows good LV function, impaired relaxations. No valvular heart disease. A nuclear stress test came back normal. No perfusion defects. DISCHARGE DIAGNOSES: 1. Chest pain, noncardiac. The patient advised to continue Mobic p.r.n. 2. Hypercholesterolemia. 3. Hypertension. 4. Prostate enlargement. 5. History of vertigo. 6. History of acid reflux. PLAN: Continue all his previous medications at home. Follow up in the office within a week. Possibly his chest pain is musculoskeletal. Continue Questran once a day, calcium b.i.d., ranitidine 150 mg once a day, omeprazole 40 mg once a day, Coreg 3.125 mg b.i.d., Lipitor 40 mg once a day, Ecotrin 81 mg once a day, Norvasc 5 mg once a day, meclizine 12.5 mg once a day p.r.n., Neurontin 300 mg t.i.d., Proscar 5 mg once a day, Mobic 15 mg p.o. daily p.r.n., and Flomax 0.4 mg p.o. daily. Liban Gonzalez MD
== END 2019-02-18 13:46 | disposition home or self-care (01) ==
LOC: ED 11:40 → ERH 13:55 → 2RNO 15:24
PROVIDERS: ADMIT Internal Medicine; ATTEND Internal Medicine
DX: R07.89 Other chest pain (principal); I10 Essential (primary) hypertension; E78.00 Pure hypercholesterolemia, unspecified; E78.5 Hyperlipidemia, unspecified; K21.9 Gastro-esophageal reflux disease without esophagitis; N40.0 Benign prostatic hyperplasia without lower urinary tract symptoms; M19.90 Unspecified osteoarthritis, unspecified site; Z85.46 Personal history of malignant neoplasm of prostate; Z79.1 Long term (current) use of non-steroidal anti-inflammatories (NSAID); Z79.82 Long term (current) use of aspirin; Z96.659 Presence of unspecified artificial knee joint; Z96.649 Presence of unspecified artificial hip joint
CPT/HCPCS: 36415; 71045; 78452; 80053; 80061; 82550; 83036; 83615; 83690; 83735; 84100; 84443; 84484; 85025; 85610; 85730; 93005; 93017; 93306; 99285; A9502; G0378; J1650; J2785